=== PATIENT | male | born 1945 | race Caucasian/White ===

== ENCOUNTER 2018-06-10 20:21 | Inpatient (IN) | payer MEDICARE ==
[~2018-06-10] VITALS: Ht 190.5 cm; Wt 123.2 kg
[~2018-06-10 20:21] MED LIST: ALLO300T PO; AMIO200T42 PO; ASPI-496 PO; ATOR40TA78 PO; BIMA2.5D EACHEYE; CHOL10002 PO; CYCL-259 PO; DABI150C PO; DESO15CR21 TP; FAMO1TAB3 PO; FAMO20TA7 PO; GABA-827 PO; HYDR-3245 PO; HYDR-3307 PO; HYDROCHLOROTH12.5 MG PO; KETO15CR2 TP; LEVO75TA5 PO; LISI40TA PO; MAGN100T6 PO; MECL25TA4 PO; METF500T17 PO; METO25TA35 PO/NG; NITR0.4T SL; POLY17PO29 PO; RANI-448 PO; SUCR1ORA5 PO; SUCR1TAB PO; TIZA4TAB PO
[2018-06-10] MEDS ORDERED: TRIAMCINOLONE 0.1% (20:36)
[2018-06-10] MEDS ORDERED: CARV6.252 PO (20:36)
[2018-06-10] MEDS ORDERED: KETOCONAZOLE 2% (20:36)
[2018-06-10] MEDS ORDERED: POTASSIUM CHLORIDE PO (20:36)
[2018-06-10] MEDS ORDERED: NITROSTAT (20:36)
[2018-06-10] MEDS ORDERED: HYDR1TAB16 PO (20:36)
[2018-06-10] MEDS ORDERED: POLYETHYLENE GLYCOL (20:36)
[2018-06-10] MEDS ORDERED: ATOR20TA PO (20:36)
[2018-06-10] MEDS ORDERED: GABA600T7 PO (20:36)
[2018-06-10] MEDS ORDERED: METH750T2 PO (20:36)
[2018-06-10] MEDS ORDERED: TORS20TA2 PO (20:36)
[2018-06-10] MEDS ORDERED: LISI-167 PO (20:36)
[2018-06-10] MEDS ORDERED: BIMATOPROST (20:36)
[2018-06-10] MEDS ORDERED: LEVO100T5 PO (20:36)
[2018-06-10] MEDS ORDERED: CHOL100011 PO (20:36)
[2018-06-10] MEDS ORDERED: ALLO300T PO (20:36)
[2018-06-10] MEDS ORDERED: APIX5TAB PO (20:36)
--- NOTE | 2018-06-10 20:37 | NUR ---
[facility] LAYAWAY CLERK 500 ML OF NS ADMINISTERED
[2018-06-10] MEDS ORDERED: SODIUM CHLORIDE 0.9% 1,000ML IVBOLUS ONE (21:00)
[2018-06-10] MEDS ORDERED: SODIUM CHLORIDE FLUSH 10ML SYR IVF ONE (21:00)
[2018-06-10 21:13] LABS: BASOPHILS # (AUTO) 0.01 x10^3/uL (0-0.1); BASOPHILS % (AUTO) 0 % (0-1); EOSINOPHILS % (AUTO) 0 % (1-7); LYMPHOCYTES % (AUTO) 8 % (22-44); MD NO; MEAN CORPUSCULAR HEMOGLOBIN 33.2 pg (27.5-34.5); MEAN CORPUSCULAR HGB CONC 34.5 g/dL (33.2-36.2); MEAN CORPUSCULAR VOLUME 96.3 fL (81-97); MEAN PLATELET VOLUME 8.6 fL (7.4-10.4); MONOCYTES # (AUTO) 0.54 x10^3/uL (0.2-0.8); MONOCYTES % (AUTO) 4 % (2-9); NEUTROPHILS # (AUTO) 13.44 x10^3/uL (1.8-6.8); NEUTROPHILS % (AUTO) 89 % (42-75); PLATELET COUNT 177 x10^3/uL (130-400); RED BLOOD COUNT 4.76 x10^6/uL (4.38-5.82); RED CELL DISTRIBUTION WIDTH 13.2 % (9.4-14.8)
[2018-06-10 21:23] LABS: ALANINE AMINOTRANSFERASE 43 U/L (12-78); ALBUMIN 3.3 g/dL (3.4-5.0); ANION GAP 14 mmol/L (5-15); CALCIUM 8.7 mg/dL (8.5-10.1); CHLORIDE 91 mmol/L (98-107); CREATININE 1.19 mg/dL (0.7-1.3)
[2018-06-10 21:25] LABS: ALKALINE PHOSPHATASE 84 U/L (45-117); BILIRUBIN,TOTAL 1.8 mg/dL (0.2-1.0); TOTAL PROTEIN 7.2 g/dL (6.4-8.2)
[2018-06-10 21:32] LABS: MICROSCOPIC NOT IND
[2018-06-10 21:35] LABS: CULTURE INDICATED? NO
[2018-06-10 21:56] LABS: ACETONE, SERUM Large (80mg/dL) mg/dL (Negative)
[2018-06-10] MEDS ORDERED: INSULIN REGULAR 100 UNITS/ML, 3ML VIAL SQ-INSULIN ONE (22:00)
--- NOTE | 2018-06-10 22:05 | NUR ---
PT TO CT, AT SIDE
[2018-06-10] MEDS ORDERED: SODIUM CHLORIDE FLUSH 10ML SYR IVF PRN (23:00)
[2018-06-11] MEDS ORDERED: POLYETHYLENE GLYCOL 17 GM PACKET PO PRN
[2018-06-11] MEDS ORDERED: METOCLOPRAMIDE 5 MG/ML, 2ML IVPush PRN
[2018-06-11] MEDS ORDERED: APIXABAN MC SCH (00:30)
[2018-06-11 00:33] VITALS: BP 129/69
[2018-06-11] MEDS ORDERED: INSULIN LISPRO 100 UNITS/ML, PEN SQ-INSULIN ONE (01:00)
[2018-06-11] MEDS ORDERED: OMNIPAQUE 350 MG/ML, 100ML BOTTLE ONE (01:33)
[2018-06-11 05:40] LABS: BASOPHILS # (AUTO) 0.01 x10^3/uL (0-0.1); BASOPHILS % (AUTO) 0 % (0-1); EOSINOPHILS % (AUTO) 0 % (1-7); LYMPHOCYTES # (AUTO) 1.59 x10^3/uL (1-3.4); LYMPHOCYTES % (AUTO) 10 % (22-44); MD NO; MEAN CORPUSCULAR HEMOGLOBIN 33.3 pg (27.5-34.5); MEAN CORPUSCULAR HGB CONC 34.3 g/dL (33.2-36.2); MEAN CORPUSCULAR VOLUME 97.1 fL (81-97); MEAN PLATELET VOLUME 9.1 fL (7.4-10.4); MONOCYTES # (AUTO) 1.15 x10^3/uL (0.2-0.8); MONOCYTES % (AUTO) 7 % (2-9); NEUTROPHILS # (AUTO) 12.74 x10^3/uL (1.8-6.8); NEUTROPHILS % (AUTO) 82 % (42-75); PLATELET COUNT 178 x10^3/uL (130-400); RED BLOOD COUNT 4.75 x10^6/uL (4.38-5.82)
[2018-06-11 05:51] LABS: ALANINE AMINOTRANSFERASE 39 U/L (12-78); ALBUMIN 3.1 g/dL (3.4-5.0); ANION GAP 12 mmol/L (5-15); CALCIUM 8.5 mg/dL (8.5-10.1); CHLORIDE 94 mmol/L (98-107)
[2018-06-11 05:54] LABS: ALKALINE PHOSPHATASE 90 U/L (45-117); BILIRUBIN,TOTAL 2.4 mg/dL (0.2-1.0); CREATININE 1.02 mg/dL (0.7-1.3); TOTAL PROTEIN 7.1 g/dL (6.4-8.2)
[2018-06-11] MEDS: LEVOTHYROXINE 100 MCG TABLET PO SCH (05:56)
[2018-06-11] MEDS: HYDROcodone/APAP 10/325 MG TABLET PO SCH ×3 (05:56→17:07)
[2018-06-11] MEDS: INSULIN LISPRO 100 UNITS/ML, PEN SQ-INSULIN SCH ×4 (07:00→22:05)
[2018-06-11] MEDS ORDERED: OMEPRAZOLE 20 MG CAPSULE.DR PO SCH (07:00)
[2018-06-11 07:20] VITALS: BP 146/83
[2018-06-11] MEDS: CHOLECALCIFEROL 1,000 UNIT TABLET PO SCH (08:36)
[2018-06-11] MEDS: POTASSIUM CHLORIDE 20 MEQ TAB.ER.PRT PO SCH (08:36)
[2018-06-11] MEDS: METHOCARBAMOL 750 MG TABLET PO SCH ×3 (08:37→22:02)
[2018-06-11] MEDS: GABAPENTIN 300 MG CAPSULE PO SCH ×3 (08:37→22:02)
[2018-06-11] MEDS: APIXABAN 5 MG TABLET PO SCH ×2 (08:37→22:03)
[2018-06-11] MEDS: ALLOPURINOL 300 MG TABLET PO SCH (08:37)
[2018-06-11] MEDS: CARVEDILOL 6.25 MG TABLET PO SCH ×2 (08:37→22:03)
[2018-06-11] MEDS ORDERED: CARVEDILOL 6.25 MG TABLET PO SCH (09:00)
[2018-06-11] MEDS ORDERED: APIXABAN 5 MG TABLET PO SCH (09:00)
[2018-06-11] MEDS ORDERED: TORSEMIDE 20 MG TABLET PO SCH (09:00)
[2018-06-11] MEDS ORDERED: INSULIN GLARGINE 100 UNITS/ML, PEN SQ-INSULIN SCH ×3 (09:00→21:00)
[2018-06-11] MEDS ORDERED: LISINOPRIL 10 MG TABLET PO SCH (09:00)
[2018-06-11] MEDS ORDERED: MAALOX/HYOSCYAMINE/LIDOCAINE 45 ML BTL PO PRN (09:15)
[2018-06-11] MEDS ORDERED: SODIUM CHLORIDE 0.9% 1,000 ML IV SCH (09:30)
[2018-06-11] MEDS ORDERED: ONDANSETRON 2MG/ML, 2ML IVPush PRN (11:00)
[2018-06-11] MEDS ORDERED: PROMETHAZINE 25 MG/ML, 1ML IM PRN (11:00)
[2018-06-11] MEDS: SODIUM CHLORIDE 0.9% 1,000 ML IV SCH ×3 (12:02→17:12)
[2018-06-11 14:00] VITALS: BP 93/51
[2018-06-11 14:07] LABS: MICROSCOPIC NOT IND
[2018-06-11 14:27] LABS: CULTURE INDICATED? NO
[2018-06-11] MEDS: OMEPRAZOLE 20 MG CAPSULE.DR PO SCH (17:12)
[2018-06-11 19:00] VITALS: BP 110/63
[2018-06-11] MEDS: ATORVASTATIN 20 MG TABLET PO SCH (22:03)
[2018-06-12 00:25] VITALS: BP 116/65
[2018-06-12] MEDS: HYDROcodone/APAP 10/325 MG TABLET PO SCH ×5 (01:10→20:47)
[2018-06-12] MEDS: SODIUM CHLORIDE 0.9% 1,000 ML IV SCH ×2 (01:10→08:22)
[2018-06-12] MEDS: LEVOTHYROXINE 100 MCG TABLET PO SCH (05:50)
[2018-06-12 06:56] VITALS: BP 109/67
[2018-06-12] MEDS: ALLOPURINOL 300 MG TABLET PO SCH (08:17)
[2018-06-12] MEDS: METHOCARBAMOL 750 MG TABLET PO SCH ×3 (08:17→20:46)
[2018-06-12] MEDS: POTASSIUM CHLORIDE 20 MEQ TAB.ER.PRT PO SCH (08:17)
[2018-06-12] MEDS: CARVEDILOL 6.25 MG TABLET PO SCH ×2 (08:18→20:47)
[2018-06-12] MEDS: APIXABAN 5 MG TABLET PO SCH ×2 (08:18→20:46)
[2018-06-12] MEDS: CHOLECALCIFEROL 1,000 UNIT TABLET PO SCH (08:18)
[2018-06-12] MEDS: GABAPENTIN 300 MG CAPSULE PO SCH ×3 (08:18→20:47)
[2018-06-12] MEDS: OMEPRAZOLE 20 MG CAPSULE.DR PO SCH ×2 (08:22→16:43)
[2018-06-12] MEDS: INSULIN LISPRO 100 UNITS/ML, PEN SQ-INSULIN SCH ×4 (08:24→20:46)
[2018-06-12] MEDS: INSULIN GLARGINE 100 UNITS/ML, PEN SQ-INSULIN SCH ×2 (08:24→20:45)
[2018-06-12 08:40] LABS: ALBUMIN 2.6 g/dL (3.4-5.0); ANION GAP 4 mmol/L (5-15); CALCIUM 7.7 mg/dL (8.5-10.1); CHLORIDE 99 mmol/L (98-107)
[2018-06-12 08:43] LABS: MEAN CORPUSCULAR HEMOGLOBIN 32.5 pg (27.5-34.5); MEAN CORPUSCULAR HGB CONC 33.4 g/dL (33.2-36.2); MEAN CORPUSCULAR VOLUME 97.4 fL (81-97); MEAN PLATELET VOLUME 8.5 fL (7.4-10.4); PLATELET COUNT 142 x10^3/uL (130-400); RED BLOOD COUNT 4.23 x10^6/uL (4.38-5.82); RED CELL DISTRIBUTION WIDTH 13.1 % (9.4-14.8)
[2018-06-12] MEDS ORDERED: LISINOPRIL 5 MG TABLET PO SCH (09:00)
[2018-06-12 09:15] LABS: ALANINE AMINOTRANSFERASE 33 U/L (12-78); ALKALINE PHOSPHATASE 77 U/L (45-117); BILIRUBIN,TOTAL 1.7 mg/dL (0.2-1.0); TOTAL PROTEIN 6.3 g/dL (6.4-8.2)
[2018-06-12 09:30] LABS: BASOPHILS # (AUTO) 0.02 x10^3/uL (0-0.1); BASOPHILS % (AUTO) 0 % (0-1); EOSINOPHILS # (AUTO) 0.04 x10^3/uL (0-0.4); EOSINOPHILS % (AUTO) 1 % (1-7); LYMPHOCYTES # (AUTO) 1.63 x10^3/uL (1-3.4); LYMPHOCYTES % (AUTO) 18 % (22-44); MD SCAN; MONOCYTES % (AUTO) 9 % (2-9); NEUTROPHILS # (AUTO) 6.72 x10^3/uL (1.8-6.8); NEUTROPHILS % (AUTO) 73 % (42-75)
[2018-06-12 12:27] VITALS: BP 10/65
[2018-06-12 20:46] VITALS: BP 121/70
[2018-06-12] MEDS: ATORVASTATIN 20 MG TABLET PO SCH (20:46)
[2018-06-13 01:58] VITALS: BP 102/62
[2018-06-13] MEDS: HYDROcodone/APAP 10/325 MG TABLET PO SCH ×3 (05:34→15:39)
[2018-06-13] MEDS: LEVOTHYROXINE 100 MCG TABLET PO SCH (05:35)
[2018-06-13 06:15] LABS: ALBUMIN 2.4 g/dL (3.4-5.0); ANION GAP 4 mmol/L (5-15); CALCIUM 7.8 mg/dL (8.5-10.1); CHLORIDE 103 mmol/L (98-107)
[2018-06-13 06:20] LABS: ALANINE AMINOTRANSFERASE 31 U/L (12-78); ALKALINE PHOSPHATASE 69 U/L (45-117); BILIRUBIN,TOTAL 1.1 mg/dL (0.2-1.0); CREATININE 0.82 mg/dL (0.7-1.3); TOTAL PROTEIN 5.8 g/dL (6.4-8.2)
[2018-06-13] MEDS: INSULIN LISPRO 100 UNITS/ML, PEN SQ-INSULIN SCH ×3 (07:00→15:40)
[2018-06-13 07:32] VITALS: BP 103/58
[2018-06-13] MEDS: METHOCARBAMOL 750 MG TABLET PO SCH ×2 (08:06→15:40)
[2018-06-13] MEDS: GABAPENTIN 300 MG CAPSULE PO SCH ×2 (08:06→15:38)
[2018-06-13] MEDS: CARVEDILOL 6.25 MG TABLET PO SCH (08:06)
[2018-06-13] MEDS: APIXABAN 5 MG TABLET PO SCH (08:06)
[2018-06-13] MEDS: CHOLECALCIFEROL 1,000 UNIT TABLET PO SCH (08:06)
[2018-06-13] MEDS: POTASSIUM CHLORIDE 20 MEQ TAB.ER.PRT PO SCH (08:06)
[2018-06-13] MEDS: ALLOPURINOL 300 MG TABLET PO SCH (08:06)
[2018-06-13] MEDS: OMEPRAZOLE 20 MG CAPSULE.DR PO SCH (08:06)
[2018-06-13] MEDS ORDERED: INSULIN GLARGINE 100 UNITS/ML, PEN SQ-INSULIN SCH (09:00)
[2018-06-13] MEDS ORDERED: POTA20TA6 PO (11:55)
[2018-06-13] MEDS ORDERED: Maalox/Hyoscyamine/Lidocaine PO (11:55)
[2018-06-13] MEDS ORDERED: INSU100I11 SQ-INSULIN (11:55)
[2018-06-13] MEDS ORDERED: OMEP-110 PO (11:55)
[2018-06-13] MEDS ORDERED: INSU100I13 SQ-INSULIN (11:55)
[2018-06-13 14:19] VITALS: BP 102/61
[2018-06-13] MEDS ORDERED: MAG355OR15 PO (15:33)
== END 2018-06-13 16:20 | disposition home health service (06) | DRG 637 ==
LOC: ED 21:36 → INTOOBSV 22:56 → EDIP 22:56 → 3NE 23:48 → OBSVTOIN 06-12 11:09 → DCLOUNGE 06-13 15:36
PROVIDERS: ADMIT Family Medicine; ATTEND Family Medicine
DX: E11.10 Type 2 diabetes mellitus with ketoacidosis without coma (principal); J96.00 Acute respiratory failure, unspecified whether with hypoxia or hypercapnia; D68.69 Other thrombophilia; D72.829 Elevated white blood cell count, unspecified; E03.9 Hypothyroidism, unspecified; E78.5 Hyperlipidemia, unspecified; E86.0 Dehydration; G89.29 Other chronic pain; I87.2 Venous insufficiency (chronic) (peripheral); I10 Essential (primary) hypertension; I25.10 Atherosclerotic heart disease of native coronary artery without angina pectoris; I25.2 Old myocardial infarction; Z79.01 Long term (current) use of anticoagulants; Z79.4 Long term (current) use of insulin; Z87.891 Personal history of nicotine dependence
CPT/HCPCS: 36415; 74177; 80053; 81003; 82010; 82947; 82962; 83036; 83690; 83930; 84443; 85025; 93005; 96361; 96374; G0378; Q9967; J1815; J7030